=== PATIENT | male | born 1950 | race Caucasian/White ===

== ENCOUNTER 2016-10-12 15:25 | Emergency (ER) | payer MEDICAID, MEDICARE ==
[2016-10-12] MEDS ORDERED: MORPHINE SULFATE 4 MG/ML SYRINGE ONE (17:35)
[2016-10-12] MEDS ORDERED: PROMETHAZINE HCL 25 MG/ML VIAL ONE (17:35)
== END 2016-10-12 18:13 | disposition home or self-care (01) ==
LOC: ED 15:25
DX: M54.41 Lumbago with sciatica, right side (principal); I10 Essential (primary) hypertension
CPT/HCPCS: 99283 ×2; 96372 ×2; J2270; J2550

== ENCOUNTER 2017-01-17 08:59 | Emergency (ER) | payer MEDICARE ==
--- NOTE | 2017-01-17 10:24 | RAD ---
SHOULDER-RIGHT 2 OR MORE VIEWS History: Chronic shoulder pain. Comparison: None. Findings: Mild glenohumeral degenerative changes are identified with a small proximal humeral inferior osteophyte. The glenohumeral alignment is intact. The acromiohumeral distance is well maintained. No soft tissue calcifications are identified. The AC joint is not widened. There are degenerative changes noted of the acromioclavicular joint with inferior osteophyte formation. The included portions of the right lung field are within expected. Impression: 1. Mild glenohumeral degenerative osteoarthritic changes. 2. 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
== END 2017-01-17 10:54 | disposition home or self-care (01) ==
LOC: ED 08:59
DX: M75.101 Unspecified rotator cuff tear or rupture of right shoulder, not specified as traumatic (principal); I10 Essential (primary) hypertension; X58.XXXA Exposure to other specified factors, initial encounter; Y92.9 Unspecified place or not applicable